=== PATIENT | male | born 1985 | race Caucasian/White ===

== ENCOUNTER 2017-07-02 23:19 | Emergency (ER) | payer OTHER ==
[2017-07-02 23:32] VITALS: BP 138/82; PULSE 82; TEMP 97.6; BMI 29.8
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
== END 2017-07-03 01:31 | disposition home or self-care (01) ==
LOC: JER 23:19
DX: S92.415A Nondisplaced fracture of proximal phalanx of left great toe, initial encounter for closed fracture (principal); W20.8XXA Other cause of strike by thrown, projected or falling object, initial encounter; Y93.89 Activity, other specified; Y92.89 Other specified places as the place of occurrence of the external cause; Y99.0 Civilian activity done for income or pay; X08.8XXA Exposure to other specified smoke, fire and flames, initial encounter
CPT/HCPCS: 73630-TC-LT; 73630-TC-RT-FY; 99283-25

== ENCOUNTER 2018-02-23 02:10 | Emergency (ER) | payer OTHER ==
[2018-02-23] MEDS ORDERED: IBUPROFEN 400 MG TABLET (FP) PO ONE ×2 (02:38→03:34)
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
[2018-02-23 03:10] VITALS: BMI 31.8
[2018-02-23 03:58] VITALS: BP 122/89; PULSE 92; TEMP 98.3
== END 2018-02-23 04:14 | disposition home or self-care (01) ==
LOC: JER 02:10
DX: S86.811A Strain of other muscle(s) and tendon(s) at lower leg level, right leg, initial encounter (principal); W10.8XXA Fall (on) (from) other stairs and steps, initial encounter; X02.8XXA Other exposure to controlled fire in building or structure, initial encounter; Y93.89 Activity, other specified; Y92.89 Other specified places as the place of occurrence of the external cause; Y99.0 Civilian activity done for income or pay
CPT/HCPCS: 73562-TC-RT-FY; 99283-25

== ENCOUNTER 2023-06-24 21:32 | Emergency (ER) | payer OTHER ==
[2023-06-24 21:38] VITALS: BP 127/81; PULSE 108; RESP 20; TEMP 97.5; BMI 31.8
[2023-06-24] MEDS ORDERED: LIDOCAINE 4% PATCH TP ONE (22:13)
[2023-06-24] MEDS ORDERED: KETOROLAC TROMETHAMINE 30 MG/1 ML VIAL ONE (22:13)
[2023-06-24] MEDS ORDERED: METHOCARBAMOL 500 MG TABLET ONE (22:13)
[2023-06-24] MEDS: LIDOCAINE 5% TOPICAL PATCH TP ONE (22:19)
[2023-06-24] MEDS: METHOCARBAMOL 500 MG TABLET PO ONE (22:20)
[2023-06-24] MEDS: KETOROLAC TROMETHAMINE 30 MG/1 ML VIAL IM ONE (22:20)
== END 2023-06-24 22:39 | disposition home or self-care (01) ==
LOC: JERFT 21:32
DX: M54.50 Low back pain, unspecified (principal)
CPT/HCPCS: 99283-25

== ENCOUNTER 2024-01-05 08:39 | Emergency (ER) | payer OTHER ==
[2024-01-05 09:05] VITALS: BP 114/74; PULSE 95; RESP 18; TEMP 98.1; BMI 31.8
== END 2024-01-05 09:29 | disposition home or self-care (01) ==
LOC: JERFT 08:39
DX: S39.012A Strain of muscle, fascia and tendon of lower back, initial encounter (principal); X50.0XXA Overexertion from strenuous movement or load, initial encounter
CPT/HCPCS: 99283-25